=== PATIENT | male | born 1970 | race Caucasian/White ===

== ENCOUNTER 2018-09-27 14:24 | Emergency (ER) | payer OTHER ==
[~2018-09-27] VITALS: Ht 154.9 cm; Wt 115.7 kg
[~2018-09-27 14:24] MED LIST: ULTRACET PO
[2018-09-27] MEDS ORDERED: AVALIDE 300-121 EACH (14:45)
== END 2018-09-27 20:11 | disposition home or self-care (01) ==
LOC: ER 14:24
DX: K57.90 Diverticulosis of intestine, part unspecified, without perforation or abscess without bleeding (principal)

== ENCOUNTER 2019-08-02 14:44 | Emergency (ER) | payer OTHER ==
[~2019-08-02] VITALS: Ht 185.4 cm; Wt 113.4 kg
[~2019-08-02 14:44] MED LIST changes: +AVALIDE 300-121 EACH
[2019-08-02] MEDS ORDERED: BACTRIM DS TAB1 EACH PO (21:36)
== END 2019-08-02 21:50 | disposition home or self-care (01) ==
LOC: ER 14:44
DX: N39.0 Urinary tract infection, site not specified (principal)